=== PATIENT | male | born 1955 | race Caucasian/White ===

== ENCOUNTER 2017-07-13 11:05 | Observation (INO) | payer BC ==
[~2017-07-13] VITALS: Ht 182.9 cm; Wt 88.5 kg
[2017-07-13] VITALS (7 sets, daily range): BP systolic 140–191; BP diastolic 82–98; PULSE 67–86; RESP 16–20; TEMP 98–98.7; O2SAT 97–98
--- NOTE | 2017-07-13 11:19 | PD ---
Physical Exam Time Seen by Provider: 11:19 Narrative 62 y/o male here with chest pain since yesterday. Vital signs reviewed. Seen at triage desk. Awaiting bed placement. Data Data Last Documented VS Vital Signs Date Time Temp Pulse Resp B/P (MAP) Pulse Ox O2 Delivery O2 Flow Rate FiO2 07/13/17 11:07 98.0 86 18 191/91 (124) 97 Room Air [facility] Medical Record Reviewed: Yes Supervised Visit with MIGUE: Chicho Poole Jul 13, 2017 11:19
[2017-07-13] MEDS ORDERED: AMBI5TAB PO (11:35)
[2017-07-13] MEDS ORDERED: SODIUM CHLORIDE 0.9% FLUSH 10 ML FLUSH IVF PRN (11:45)
[2017-07-13] MEDS ORDERED: ASPIRIN 81 MG CHEW TAB PO ONE (11:45)
[2017-07-13] MEDS: NITROGLYCERIN 0.4 MG SL 25 TABS/BTL SL SCH ×2 (11:50→12:08)
--- NOTE | 2017-07-13 11:52 | PD ---
HPI Chief Complaint: Cardiac Complaint Time Seen by Provider: 11:43 Travel History International Travel<30 days: No Contact w/Intl Traveler<30days: No Traveled to known affect area: No History of Present Illness HPI Patient comes in complaining of substernal chest pain that comes and goes since yesterday. Patient describes pain as a pressure-like in nature when it "acts up " without radiation. Patient reports associated diaphoresis with this. Patient reports he did vomit times one yesterday after eating breakfast. Patient states he felt like he just ate too much. Patient states he has not ate anything since, has been drinking plenty of fluids. Patient states he's been just trying to rest that has helped alleviate his symptoms some. Patient tried to put his motorcycle in storage today making the pain worse. Patient denies any shortness of breath, fevers, numbness or tingling, back pain, abdominal pain, loss or change in bowel or bladder, headaches, dizziness, or change in vision. Patient denies ever having a stress test states he did see a dentofacial orthopedics dentist within the last year and was told a stress test was not needed. Patient reports that he takes a cholesterol medicine and a baby aspirin daily which he took today. Patient does report drinking 2-3 drinks a day but has not had a drink in a couple of days. PFSH Past Medical History High Cholesterol: Yes Past Surgical History Abdominal Surgery: Yes (inguinal hernia repair) Social History Alcohol Use: Yes (daily) Tobacco Use: No Substance Use: No Allergies-Medications (Allergen,Severity, Reaction): Coded Allergies: No Known Allergies (Verified Allergy, Unknown, 07/13/17) Reported Meds & Prescriptions Reported Meds & Active Scripts Active Reported Ambien (Zolpidem Tartrate) Unknown Strength Tab Unknown Dose PO HS PRN Review of Systems Except as stated in HPI: all other systems reviewed are Neg Physical Exam Narrative GENERAL: Well-developed, well nourished, in no acute distress, and non-ill appearing. SKIN: Focused skin assessment warm and dry. HEAD: Atraumatic. Normocephalic. EYES: Pupils equal and round. EOMI. No scleral icterus. No injection or drainage. ENT: No nasal bleeding or discharge. Mucous membranes pink and moist. NECK: Trachea midline. No JVD. Supple. No nuclear rigidity. CARDIOVASCULAR: Regular rate and rhythm. No murmur appreciated. RESPIRATORY: No accessory muscle use. No respiratory distress. Clear to auscultation. Breath sounds equal bilaterally. GASTROINTESTINAL: Abdomen soft, non-tender, nondistended, and no guarding. Hepatic and splenic margins not palpable. Normal bowel sounds 4. No pulsatile mass. MUSCULOSKELETAL: No obvious deformities. No clubbing. No cyanosis. No edema. Full range of motion. NEUROLOGICAL: Awake and alert. No obvious cranial nerve deficits. Motor grossly within normal limits. Normal speech. PSYCHIATRIC: Appropriate mood and affect; insight and judgment normal. Data Data Last Documented VS Vital Signs Date Time Temp Pulse Resp B/P (MAP) Pulse Ox O2 Delivery O2 Flow Rate FiO2 07/13/17 12:02 18 97 Room Air 07/13/17 11:07 98.0 86 Orders Orders Electrocardiogram (07/13/17 11:43) Ckmb (Isoenzyme) Profile (07/13/17 11:43) Complete Blood Count With Diff (07/13/17 11:43) Comprehensive Metabolic Panel (07/13/17 11:43) Magnesium (Mg) (07/13/17 11:43) Prothrombin Time / Inr (Pt) (07/13/17 11:43) Act Partial Throm Time (Ptt) (07/13/17 11:43) Troponin I (07/13/17 11:43) Lipase (07/13/17 11:43) Chest, Single Ap (07/13/17 11:43) Ecg Monitoring (07/13/17 11:43) Bilateral Bp Monitoring (07/13/17 11:43) Iv Access Insert/Monitor (07/13/17 11:43) Oximetry (07/13/17 11:43) Oxygen Administration (07/13/17 11:43) Aspirin Chew (Aspirin Chew) (07/13/17 11:45) Sodium Chloride 0.9% Flush (Ns Flush) (07/13/17 11:45) Nitroglycerin Sl (Nitrostat Sl) (07/13/17 11:45) CKMB (07/13/17 11:36) CKMB% (07/13/17 11:36) Labs Laboratory Tests Test 07/13/17 11:36 White Blood Count 7.4 TH/MM3 Red Blood Count 5.06 MIL/MM3 Hemoglobin 16.4 GM/DL Hematocrit 48.4 % Mean Corpuscular Volume 95.8 FL Mean Corpuscular Hemoglobin 32.4 PG Mean Corpuscular Hemoglobin Concent 33.9 % Red Cell Distribution Width 13.9 % Platelet Count 218 TH/MM3 Mean Platelet Volume 7.0 FL Neutrophils (%) (Auto) 76.3 % Lymphocytes (%) (Auto) 15.2 % Monocytes (%) (Auto) 7.6 % Eosinophils (%) (Auto) 0.5 % Basophils (%) (Auto) 0.4 % Neutrophils # (Auto) 5.7 TH/MM3 Lymphocytes # (Auto) 1.1 TH/MM3 Monocytes # (Auto) 0.6 TH/MM3 Eosinophils # (Auto) 0.0 TH/MM3 Basophils # (Auto) 0.0 TH/MM3 CBC Comment DIFF FINAL Differential Comment Prothrombin Time 10.2 SEC Prothromb Time International Ratio 0.9 RATIO Activated Partial Thromboplast Time 27.2 SEC Blood Urea Nitrogen 12 MG/DL Creatinine 0.98 MG/DL Random Glucose 93 MG/DL Total Protein 8.2 GM/DL Albumin 4.1 GM/DL Calcium Level 9.5 MG/DL Magnesium Level 2.2 MG/DL Alkaline Phosphatase 128 U/L Aspartate Amino Transf (AST/SGOT) 40 U/L Alanine Aminotransferase (ALT/SGPT) 46 U/L Total Bilirubin 1.5 MG/DL Sodium Level 137 MEQ/L Potassium Level 3.4 MEQ/L Chloride Level 100 MEQ/L Carbon Dioxide Level 27.1 MEQ/L Anion Gap 10 MEQ/L Estimat Glomerular Filtration Rate 77 ML/MIN Total Creatine Kinase 194 U/L Creatine Kinase MB 2.2 NG/ML Troponin I LESS THAN 0.02 NG/ML Lipase 205 U/L [facility] Medical Decision Making Medical Screen Exam Complete: Yes Emergency Medical Condition: Yes Interpretation(s) EKG reviewed by Dr. Robert shows normal sinus rhythm ventricular rate of 73. No STEMI. Chest x-ray reviewed by myself and Dr. Robert shows no acute cardiopulmonary disease. Radiologist to over read. Differential Diagnosis Acute coronary syndrome, angina, electrolyte abnormality, pneumonia, pancreatitis, other Narrative Course Patient was seen and examined. Initial laboratory radiological studies were ordered. IV was established. 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 Patient was given additional 81 mg of aspirin. Nitroglycerin was ordered sublingual as needed for chest pain. Discussed patient with Dr. Robert, who is in agreement with plan of care and disposition. Discussed all findings and plan of care with patient, who is agreeable for admission. All questions were answered. Patient remained stable throughout ED course. Diagnosis Primary Impression: Chest pain Qualified Codes: R07.9 - Chest pain, unspecified Admitting Information Admitting Physician Requests: Observation Condition: Stable Prudencio Levy Jul 13, 2017 11:52
[2017-07-13 12:08] LABS: AUTOMATED NEUTROPHIL # 5.7 TH/MM3 (1.8-7.7); BASOPHIL % 0.4 % (0.0-2.0); EOSINOPHIL % 0.5 % (0.0-4.0); HEMATOCRIT 48.4 % (39.0-51.0); HEMO FLAGS DIFF FINAL; LYMPH % 15.2 % (9.0-44.0); LYMPHOCYTE # 1.1 TH/MM3 (1.0-4.8); MEAN CELL VOLUME 95.8 FL (80.0-100.0); MEAN CORPUSCULAR HEMOGLOBIN 32.4 PG (27.0-34.0); MEAN CORPUSCULAR HGB CONC 33.9 % (32.0-36.0); MONO % 7.6 % (0.0-8.0); NEUT % 76.3 % (16.0-70.0); PLATELET COUNT 218 TH/MM3 (150-450); RED BLOOD COUNT 5.06 MIL/MM3 (4.50-5.90); RED CELL DISTRIBUTION WIDTH 13.9 % (11.6-17.2); WHITE BLOOD COUNT 7.4 TH/MM3 (4.0-11.0)
[2017-07-13 12:25] LABS: ANION GAP 10 MEQ/L (5-15); APTT (PATIENT) 27.2 SEC (24.3-30.1); AST (GOT) 40 U/L (15-37); BICARBONATE 27.1 MEQ/L (21.0-32.0); BLOOD UREA NITROGEN 12 MG/DL (7-18); CHLORIDE 100 MEQ/L (98-107); GLOMERULAR FILTRATION RATE 77 ML/MIN (>89); INTERNATIONAL NORMALIZED RATIO 0.9 RATIO; MAGNESIUM 2.2 MG/DL (1.5-2.5); POTASSIUM 3.4 MEQ/L (3.5-5.1); PROTHROMBIN TIME - PATIENT 10.2 SEC (9.8-11.6); SODIUM (NA) 137 MEQ/L (136-145)
[2017-07-13 12:26] LABS: ALT (GPT) 46 U/L (12-78)
[2017-07-13 12:30] LABS: ALKALINE PHOSPHATASE 128 U/L (45-117); CREATINE KINASE 194 U/L (39-308); TOTAL BILIRUBIN ADULT 1.5 MG/DL (0.2-1.0)
[2017-07-13 12:43] LABS: CKMB 2.2 NG/ML (0.5-3.6)
--- NOTE | 2017-07-13 13:01 | RADRPT ---
EXAM DATE/TIME: 07/13/2017 12:21 [place] COMPARISON: No previous studies available for comparison. INDICATIONS : Mid sternal chest pains with pressure into left chest wall. MEDICAL HISTORY : None. SURGICAL HISTORY : None. ENCOUNTER: Initial ACUITY: 3 days PAIN SCORE: 7/10 LOCATION: Left chest FINDINGS: A single view of the chest demonstrates the lungs to be symmetrically aerated without evidence of mas s, infiltrate. Minimal blunting left ultrasonic sulcus is noted. The cardiomediastinal contours are unremarkable. Osseous structures are intact. CONCLUSION: Minimal blunting left costophrenic sulcus, nonspecific. Acute versus chronic. No prior posterior co mparison. Johnson Pedraza MD FACR on July 13, 2017 at 12:59 Board Certified Radiologist. This report was verified electronically.
[2017-07-13] MEDS ORDERED: ONDANSETRON HCL 4 MG/2 ML VIAL IV PRN (13:45)
[2017-07-13] MEDS ORDERED: ACETAMINOPHEN 500 MG CPLT PO PRN (13:45)
[2017-07-13] MEDS ORDERED: SODIUM CHLORIDE 0.9% FLUSH 10 ML FLUSH IV FLUSH PRN (13:45)
[2017-07-13] MEDS ORDERED: ACETAMINOPHEN/HYDROcodone 325 MG/7.5 MG TAB PO PRN (13:45)
--- NOTE | 2017-07-13 14:19 | HHI.HP ---
HPI Primary Care Physician Non-Staff Chief Complaint Chest pain History of Present Illness This is a 62-year-old male that presents to ED via private vehicle complaining of intermittent chest discomforts that began yesterday afternoon. He was at home doing nothing in particular. He describes it as a discomfort and points to the center of his chest. It lasted a split-second but occurred maybe 2 or 3 more times last evening. He had no associated nausea, shortness breath, or diaphoresis with it but states he did have an episode of emesis yesterday morning after eating to egg and cheese omelettes. Denies abdominal pain. Denies diarrhea or constipation blood in stool. He states when he woke up this morning he felt okay. However a little later as he was getting ready for showering the same discomfort reoccurred also lasting a second without associated shortness breath, nausea, or diaphoresis. Denies cardiac disease. States that he saw a hospitality ambassador about a year ago [place]. States he was getting a full physical and was seeing multiple specialists prior to losing his [employer] and [employer] insurance. States he saw hospitality ambassador but told him that everything looked good and he did not need stress testing or other cardiac testing. Denies family history of heart disease. States the lifetime nonsmoker. Review of Systems General: Patient denies fevers, chills recent, and recent travel HEENT: Patient denies headache, sore throat, difficulty swallowing. Cardiovascular: Has the chest discomfort as mentioned above. Denies sensation of heart beating rapidly or irregularly. No syncope. Denies diaphoresis. Respiratory: Denies shortness of breath or inspirational chest discomfort. Denies coughing wheezing or hemoptysis. GI: Denies having nausea or emesis with his discomfort however states he did have an episode of emesis after having 2 egg and cheese omelettes yesterday morning for breakfast. Patient denies diarrhea, abdominal pain, bloody stools. Musculoskeletal: Patient denies joint pain or edema. Denies calf pain or edema. Neurovascular: Patient denies numbness, tingling, weakness in extremities. Denies headache. Endocrine: Denies polyuria and polydipsia. Hematologic: Denies easy bruising. Skin: Denies rash or itching. Past Family Social History Allergies: Coded Allergies: No Known Allergies (Verified Allergy, Unknown, 07/13/17) Past Medical History Hyperlipidemia. Denies hypertension, diabetes, and CAD. Past Surgical History Hernia repair. Reported Medications Reported Meds & Active Scripts Active Reported Ambien (Zolpidem Tartrate) Unknown Strength Tab Unknown Dose PO HS PRN Active Ordered Medications Current Medications Medications (Trade) Dose Ordered Sig/Manjeet Route Start Time Stop Time Status Last Admin (NS Flush) 2 ml UNSCH PRN IV FLUSH 07/13/17 13:45 (NS Flush) 2 ml BID IV FLUSH 07/13/17 21:00 (Tylenol) 500 mg Q4H PRN PO 07/13/17 13:45 ([place] 7.5-325 Mg) 1 tab Q4H PRN PO 07/13/17 13:45 (Zofran Inj) 4 mg Q6H PRN IV 07/13/17 13:45 Family History Denies family history of CAD. Social History Lifetime nonsmoker. Denies illicit drugs. States he has on average 2 alcohol beverages per day. Physical Exam Vital Signs Vital Signs Date Time Temp Pulse Resp B/P (MAP) Pulse Ox O2 Delivery O2 Flow Rate FiO2 07/13/17 14:00 07/13/17 14:00 68 16 168/96 (120) 98 Room Air 07/13/17 13:50 98 21 07/13/17 13:00 68 18 140/82 (101) 98 Room Air 07/13/17 12:02 18 97 Room Air 07/13/17 12:02 97 Room Air 07/13/17 12:02 16 98 Room Air 07/13/17 12:00 68 16 161/88 (112) 97 Room Air 07/13/17 11:07 98.0 86 18 191/91 (124) 97 Room Air Physical Exam GENERAL: This is a well-nourished, well-developed patient, in no apparent distress. Patient speaks in clear complete sentences. Patient is pleasant. HEENT: Head is atraumatic and normocephalic. Neck is supple without lymphadenopathy and trachea is midline. No JVD or carotid bruits. CARDIOVASCULAR: Regular rate and rhythm without murmurs, gallops, or rubs. RESPIRATORY: Clear to auscultation. Breath sounds equal bilaterally. No wheezes , rales, or rhonchi. Chest wall is nontender. No use of accessory muscles. GASTROINTESTINAL: Abdomen is nontender, nondistended. Abdomen soft. No obvious pulsatile mass or bruit. No CVA tenderness. Strong femoral pulses bilaterally. Normal bowel sounds in all quadrants. MUSCULOSKELETAL: Patient is moving upper and lower extremities freely. No calf tenderness or edema, no Homans sign. Strong pulses in upper and lower extremities. NEUROLOGICAL: Patient is alert and oriented. Cranial nerves 2-12 are grossly intact. No focal deficits and speech is clear. SKIN: No rash and turgor is normal. Laboratory Laboratory Tests Test 07/13/17 11:36 White Blood Count 7.4 Red Blood Count 5.06 Hemoglobin 16.4 Hematocrit 48.4 Mean Corpuscular Volume 95.8 Mean Corpuscular Hemoglobin 32.4 Mean Corpuscular Hemoglobin Concent 33.9 Red Cell Distribution Width 13.9 Platelet Count 218 Mean Platelet Volume 7.0 Neutrophils (%) (Auto) 76.3 Lymphocytes (%) (Auto) 15.2 Monocytes (%) (Auto) 7.6 Eosinophils (%) (Auto) 0.5 Basophils (%) (Auto) 0.4 Neutrophils # (Auto) 5.7 Lymphocytes # (Auto) 1.1 Monocytes # (Auto) 0.6 Eosinophils # (Auto) 0.0 Basophils # (Auto) 0.0 CBC Comment DIFF FINAL Differential Comment Prothrombin Time 10.2 Prothromb Time International Ratio 0.9 Activated Partial Thromboplast Time 27.2 Blood Urea Nitrogen 12 Creatinine 0.98 Random Glucose 93 Total Protein 8.2 Albumin 4.1 Calcium Level 9.5 Magnesium Level 2.2 Alkaline Phosphatase 128 Aspartate Amino Transf (AST/SGOT) 40 Alanine Aminotransferase (ALT/SGPT) 46 Total Bilirubin 1.5 Sodium Level 137 Potassium Level 3.4 Chloride Level 100 Carbon Dioxide Level 27.1 Anion Gap 10 Estimat Glomerular Filtration Rate 77 Total Creatine Kinase 194 Creatine Kinase MB 2.2 Troponin I LESS THAN 0.02 Lipase 205 Result Diagram: 07/13/17 1136 07/13/17 1136 Imaging Last 48 hours Impressions Chest X-Ray 07/13/17 1143 Signed Impressions: Service Date/Time: Thursday, July 13, 2017 12:21 - CONCLUSION: Minimal blunting left costophrenic sulcus, nonspecific. Acute versus chronic. No prior posterior comparison. Johnson Pedraza MD FACR Course Initial EKG has sinus rhythm without significant ST segment depressions or elevations. Caprini VTE Risk Assessment Caprini VTE Risk Assessment: Mod/High Risk (score >= 2) Caprini Risk Assessment Model Point Value = 1 Point Value = 2 Point Value = 3 Point Value = 5 Age 41-60 Minor surgery BMI > 25 kg/m2 Swollen legs Varicose veins or History of unexplained or recurrent spontaneous Oral contraceptives or hormone replacement Sepsis (< 1 month) Serious lung disease, including pneumonia (< 1 month) Abnormal pulmonary function Acute myocardial infarction Congestive heart failure (< 1 month) History of inflammatory bowel disease Medical patient at bed rest Age 61-74 Arthroscopic surgery Major open surgery (> 45 min) Laparoscopic surgery (> 45 min) Malignancy Confined to bed (> 72 hours) Immobilizing plaster cast Central venous access Age >= 75 History of VTE Family history of VTE Factor V Leiden Prothrombin [id number] Lupus anticoagulant Anticardiolipin antibodies Elevated serum homocysteine Heparin-induced thrombocytopenia Other congenital or acquired thrombophilia Stroke (< 1 month) Elective arthroplasty Hip, pelvis, or leg fracture Acute spinal cord injury (< 1 month) Prophylaxis Regimen Total Risk Factor Score Risk Level Prophylaxis Regimen 0-1 Low Early ambulation 2 Moderate Order ONE of the following: *Sequential Compression Device (SCD) *Heparin 5000 units SQ BID 3-4 Higher Order ONE of the following medications: *Heparin 5000 units SQ TID *Enoxaparin/Lovenox 40 mg SQ daily (WT < 150 kg, CrCl > 30 mL/min) *Enoxaparin/Lovenox 30 mg SQ daily (WT < 150 kg, CrCl > 10-29 mL/min) *Enoxaparin/Lovenox 30 mg SQ BID (WT < 150 kg, CrCl > 30 mL/min) AND/OR *Sequential Compression Device (SCD) 5 or more Highest Order ONE of the following medications: *Heparin 5000 units SQ TID (Preferred with Epidurals) *Enoxaparin/Lovenox 40 mg SQ daily (WT < 150 kg, CrCl > 30 mL/min) *Enoxaparin/Lovenox 30 mg SQ daily (WT < 150 kg, CrCl > 10-29 mL/min) *Enoxaparin/Lovenox 30 mg SQ BID (WT < 150 kg, CrCl > 30 mL/min) AND *Sequential Compression Device (SCD) Assessment and Plan Assessment and Plan * Chest pain: Patient's discomfort is atypical. He will have cardiac enzymes and EKGs and be seen by Dr. Pritesh Mueller of cardiology in the chest pain center. He will undergo a William protocol ETT and likely be discharged nonischemic. He should follow-up with PCP. * Hyperlipidemia: Continue atorvastatin. Patient is stable at this time. He is agreeable to this plan. Bruce Edgar Jul 13, 2017 14:19
--- NOTE | 2017-07-13 14:27 | EKG ---
Date Performed: 07/13/2017 Time Performed: 11:32:35 PTAGE: 62 years EKG: Sinus rhythm NORMAL ECG NO PREVIOUS TRACING DOCTOR: Michael Lezama Interpretating Date/Time 07/13/2017 14:26:07
--- NOTE | 2017-07-13 16:00 | HHI.DCPOC ---
Discharge Care Plan Diagnosis: (1) Hyperlipidemia (2) Chest pain Goals to Promote Your Health * To prevent worsening of your condition and complications * To maintain your health at the optimal level Directions to Meet Your Goals Take your medications as prescribed Follow your dietary instruction Follow activity as directed Keep your appointments as scheduled Take your immunizations and boosters as scheduled If your symptoms worsen call your PCP, if no PCP go to Urgent Care Center or Emergency Room Smoking is Dangerous to Your Health. Avoid second hand smoke Call the 24-hour hour crisis hotline for domestic abuse at Bruce Edgar Jul 13, 2017 16:00
--- NOTE | 2017-07-13 16:05 | TR ---
Date Performed: 07/13/2017 Time Performed: 14:33:05 DOCTOR: Pritesh Mueller DRUG LIST: CLINICAL HISTORY: REASON FOR TEST: REASON FOR ENDING: OBSERVATION: CONCLUSION: CHAPARRITA PROTOCOL. NO CP. TEST STOPPED AFTER REACHING GOAL HR SECONDARY TO SOB AND LEG FATIGUE.Maximum RA=884 % Max HR Achieved=87.0% Maximum BV=643/90 Total Exercise Time=3:01 COMMENTS: Patient exercised using the Chaparrita protocol. No electrocardiographic changes were seen to suggest ischemia. Hemodynamic response to exercise was normal. No significant arrhythmia was prese nt.
[2017-07-13] MEDS ORDERED: SODIUM CHLORIDE 0.9% FLUSH 10 ML FLUSH IV FLUSH SCH (21:00)
== END 2017-07-13 16:43 | disposition home or self-care (01) ==
LOC: NEPE 11:05 → UNDOADMOB 12:55 → NEDA 12:55 → NEPFCDU 12:55 → UNDODISOB 16:43
PROVIDERS: ADMIT Internal Medicine Cardiovascular Disease; ATTEND Internal Medicine Cardiovascular Disease
DX: R07.89 Other chest pain (principal); E78.5 Hyperlipidemia, unspecified
CPT/HCPCS: 71010; 80053; 82550; 82552; 83690; 83735; 84484; 85025; 85610; 85730; 93005; 93017; 99285; G0378